=== PATIENT | female | born 1965 | race African-American/Black ===

== ENCOUNTER 2021-04-05 10:19 | Inpatient (IN) | payer OTHER ==
[2021-04-05 11:52] VITALS: BMI 32.9
[2021-04-05] MEDS ORDERED: MAGNESIUM HYDROX 2400MG/30ML ORAL SUSPENSION 30 ML CUP PO PRN (14:47)
[2021-04-05] MEDS ORDERED: MAGNESIUM CITRATE 300 ML BOTTLE PO PRN (14:47)
[2021-04-05] MEDS ORDERED: MAG HYDROX/AL HYDROX/SIMETH 30 ML UNIT-DOSE CUP PO PRN (14:47)
[2021-04-05] MEDS ORDERED: guaiFENesin 200 MG/10 ML 10 ML UNIT-DOSE CUPS PO PRN (14:47)
[2021-04-05] MEDS ORDERED: P-EPHED 60MG/TRIPROLIDI 2.5MG TABLET PO PRN (14:47)
[2021-04-05] MEDS ORDERED: LOPERAMIDE HCL 2 MG CAPSULE PO PRN (14:47)
[2021-04-05] MEDS ORDERED: LISINOPRIL 20 MG TABLET PO ONE (14:48)
[2021-04-05] MEDS ORDERED: hydrOXYzine PAMOATE 25 MG CAPSULE (FP) PO ONE (15:16)
[2021-04-05] MEDS ORDERED: LISINOPRIL 10 MG TABLET ONE (15:16)
[2021-04-05] MEDS: hydrOXYzine PAMOATE 25 MG CAPSULE (FP) PO SCH ×3 (15:18→21:26)
[2021-04-05] MEDS ORDERED: IBUPROFEN 400 MG TABLET (FP) PO ONE (15:21)
[2021-04-05] MEDS: IBUPROFEN 400 MG TABLET (FP) PO PRN (15:30)
[2021-04-05] MEDS: HYDROCHLOROTHIAZIDE 12.5 MG CAPSULE (FP) PO SCH (15:59)
[2021-04-05] MEDS: MELATONIN 5 MG TABLETS PO SCH (21:24)
[2021-04-05] MEDS: THIAMINE HCL 100 MG TABLET (FP) PO SCH (21:24)
[2021-04-05] MEDS: METOPROLOL TARTRATE 25 MG TABLET (FP) PO SCH (21:25)
[2021-04-05] MEDS: BENZTROPINE MESYLATE 1 MG TABLET PO SCH (21:25)
[2021-04-05] MEDS: LISINOPRIL 20 MG TABLET PO SCH (21:25)
[2021-04-05] MEDS: DOXEPIN HCL 10 MG CAPSULE PO SCH (21:26)
[2021-04-05] MEDS: risperiDONE 2 MG TABLET PO SCH (21:26)
[2021-04-06] MEDS: hydrOXYzine PAMOATE 25 MG CAPSULE (FP) PO SCH ×5 (06:42→21:25)
[2021-04-06] MEDS: ASPIRIN 81 MG CHEWABLE TABLETS PO SCH (09:49)
[2021-04-06] MEDS: PRENATAL VITAMINS W/ FOLIC ACID TABLET (FP) PO SCH (09:49)
[2021-04-06] MEDS: LISINOPRIL 20 MG TABLET PO SCH ×2 (09:50→21:25)
[2021-04-06] MEDS: METOPROLOL TARTRATE 25 MG TABLET (FP) PO SCH ×2 (09:50→21:25)
[2021-04-06] MEDS: HYDROCHLOROTHIAZIDE 12.5 MG CAPSULE (FP) PO SCH (09:50)
[2021-04-06] MEDS: amLODIPine BESYLATE 10 MG TABLET (FP) PO SCH (09:50)
[2021-04-06] MEDS: SERTRALINE HCL 50 MG TABLET (FP) PO SCH (09:50)
[2021-04-06 12:37] LABS: CALCIUM 9.7 mg/dL (8.5-10.1)
[2021-04-06 12:39] LABS: CREATININE 1.5 mg/dL (0.55-1.3); HEMATOCRIT 41.6 % (32.4-45.2); MCH 29.9 pg (25.7-33.7); MCHC 33.6 g/dl (32.0-36.0); MEAN CELL VOLUME 89.1 fl (80-96); MEAN PLT VOLUME 9.5 fl (7.5-11.1); PLATELET COUNT 277 10^3/uL (134-434); RBC 4.67 M/mm3 (3.60-5.2); RDW 14.5 % (11.6-15.6); WHITE BLOOD COUNT 7.3 K/mm3 (4.0-10.0)
[2021-04-06 12:41] LABS: BILIRUBIN,TOTAL 0.4 mg/dL (0.2-1)
[2021-04-06 12:43] LABS: TOT PROT 7.4 g/dl (6.4-8.2)
[2021-04-06] MEDS: risperiDONE 2 MG TABLET PO SCH (21:24)
[2021-04-06] MEDS: BENZTROPINE MESYLATE 1 MG TABLET PO SCH (21:25)
[2021-04-06] MEDS: THIAMINE HCL 100 MG TABLET (FP) PO SCH (21:25)
[2021-04-06] MEDS: MELATONIN 5 MG TABLETS PO SCH (21:25)
[2021-04-06] MEDS: DOXEPIN HCL 10 MG CAPSULE PO SCH (21:25)
[2021-04-07] MEDS: hydrOXYzine PAMOATE 25 MG CAPSULE (FP) PO SCH ×5 (06:42→21:29)
[2021-04-07] MEDS: SERTRALINE HCL 50 MG TABLET (FP) PO SCH (10:11)
[2021-04-07] MEDS: amLODIPine BESYLATE 10 MG TABLET (FP) PO SCH (10:11)
[2021-04-07] MEDS: ASPIRIN 81 MG CHEWABLE TABLETS PO SCH (10:11)
[2021-04-07] MEDS: METOPROLOL TARTRATE 25 MG TABLET (FP) PO SCH ×2 (10:11→21:28)
[2021-04-07] MEDS: LISINOPRIL 20 MG TABLET PO SCH ×2 (10:11→21:29)
[2021-04-07] MEDS: HYDROCHLOROTHIAZIDE 12.5 MG CAPSULE (FP) PO SCH (10:11)
[2021-04-07] MEDS: PRENATAL VITAMINS W/ FOLIC ACID TABLET (FP) PO SCH (10:11)
[2021-04-07] MEDS: ACETAMINOPHEN 325 MG TABLET (FP) PO PRN (15:46)
[2021-04-07] MEDS: BENZTROPINE MESYLATE 1 MG TABLET PO SCH (21:28)
[2021-04-07] MEDS: risperiDONE 2 MG TABLET PO SCH (21:28)
[2021-04-07] MEDS: MELATONIN 5 MG TABLETS PO SCH (21:29)
[2021-04-07] MEDS: DOXEPIN HCL 10 MG CAPSULE PO SCH (21:29)
[2021-04-07] MEDS: THIAMINE HCL 100 MG TABLET (FP) PO SCH (21:29)
[2021-04-08] MEDS: hydrOXYzine PAMOATE 25 MG CAPSULE (FP) PO SCH ×5 (06:31→21:15)
[2021-04-08] MEDS: ACETAMINOPHEN 325 MG TABLET (FP) PO PRN (09:47)
[2021-04-08] MEDS: PRENATAL VITAMINS W/ FOLIC ACID TABLET (FP) PO SCH (09:48)
[2021-04-08] MEDS: LISINOPRIL 20 MG TABLET PO SCH ×2 (09:48→21:16)
[2021-04-08] MEDS: HYDROCHLOROTHIAZIDE 12.5 MG CAPSULE (FP) PO SCH (09:48)
[2021-04-08] MEDS: amLODIPine BESYLATE 10 MG TABLET (FP) PO SCH (09:48)
[2021-04-08] MEDS: ASPIRIN 81 MG CHEWABLE TABLETS PO SCH (09:48)
[2021-04-08] MEDS: METOPROLOL TARTRATE 25 MG TABLET (FP) PO SCH ×2 (09:48→21:16)
[2021-04-08] MEDS: SERTRALINE HCL 50 MG TABLET (FP) PO SCH (09:48)
[2021-04-08] MEDS: risperiDONE 2 MG TABLET PO SCH (21:15)
[2021-04-08] MEDS: THIAMINE HCL 100 MG TABLET (FP) PO SCH (21:16)
[2021-04-08] MEDS: MELATONIN 5 MG TABLETS PO SCH (21:16)
[2021-04-08] MEDS: BENZTROPINE MESYLATE 1 MG TABLET PO SCH (21:16)
[2021-04-08] MEDS: DOXEPIN HCL 10 MG CAPSULE PO SCH (21:17)
[2021-04-09] MEDS: hydrOXYzine PAMOATE 25 MG CAPSULE (FP) PO SCH ×5 (06:56→21:25)
[2021-04-09] MEDS: HYDROCHLOROTHIAZIDE 12.5 MG CAPSULE (FP) PO SCH (09:55)
[2021-04-09] MEDS: METOPROLOL TARTRATE 25 MG TABLET (FP) PO SCH ×2 (09:55→21:24)
[2021-04-09] MEDS: ASPIRIN 81 MG CHEWABLE TABLETS PO SCH (09:55)
[2021-04-09] MEDS: amLODIPine BESYLATE 10 MG TABLET (FP) PO SCH (09:55)
[2021-04-09] MEDS: LISINOPRIL 20 MG TABLET PO SCH ×2 (09:55→21:24)
[2021-04-09] MEDS: PRENATAL VITAMINS W/ FOLIC ACID TABLET (FP) PO SCH (09:55)
[2021-04-09] MEDS: SERTRALINE HCL 50 MG TABLET (FP) PO SCH (09:55)
[2021-04-09] MEDS ORDERED: PT OWN MED DRAWER 7, Y5N ONE (18:49)
[2021-04-09] MEDS: BENZTROPINE MESYLATE 1 MG TABLET PO SCH (21:24)
[2021-04-09] MEDS: THIAMINE HCL 100 MG TABLET (FP) PO SCH (21:24)
[2021-04-09] MEDS: NICOTINE 10 MG CARTRIDGE (INHALER) IH PRN (21:24)
[2021-04-09] MEDS: DOXEPIN HCL 10 MG CAPSULE PO SCH (21:24)
[2021-04-09] MEDS: MELATONIN 5 MG TABLETS PO SCH (21:24)
[2021-04-09] MEDS: risperiDONE 2 MG TABLET PO SCH (21:24)
[2021-04-10] MEDS: hydrOXYzine PAMOATE 25 MG CAPSULE (FP) PO SCH ×5 (06:56→21:16)
[2021-04-10] MEDS ORDERED: PT OWN MED DRAWER 7, Y5N ONE (09:21)
[2021-04-10] MEDS: HYDROCHLOROTHIAZIDE 12.5 MG CAPSULE (FP) PO SCH (09:39)
[2021-04-10] MEDS: ASPIRIN 81 MG CHEWABLE TABLETS PO SCH (09:39)
[2021-04-10] MEDS: LISINOPRIL 20 MG TABLET PO SCH ×2 (09:39→21:16)
[2021-04-10] MEDS: PRENATAL VITAMINS W/ FOLIC ACID TABLET (FP) PO SCH (09:39)
[2021-04-10] MEDS: ACETAMINOPHEN 325 MG TABLET (FP) PO PRN (09:39)
[2021-04-10] MEDS: amLODIPine BESYLATE 10 MG TABLET (FP) PO SCH (09:39)
[2021-04-10] MEDS: SERTRALINE HCL 50 MG TABLET (FP) PO SCH (09:39)
[2021-04-10] MEDS: METOPROLOL TARTRATE 25 MG TABLET (FP) PO SCH ×2 (10:22→21:16)
[2021-04-10] MEDS: BENZTROPINE MESYLATE 1 MG TABLET PO SCH (21:16)
[2021-04-10] MEDS: risperiDONE 2 MG TABLET PO SCH (21:16)
[2021-04-10] MEDS: MELATONIN 5 MG TABLETS PO SCH (21:16)
[2021-04-10] MEDS: THIAMINE HCL 100 MG TABLET (FP) PO SCH (21:17)
[2021-04-10] MEDS: DOXEPIN HCL 10 MG CAPSULE PO SCH (21:17)
[2021-04-11] MEDS: hydrOXYzine PAMOATE 25 MG CAPSULE (FP) PO SCH ×5 (06:55→21:28)
[2021-04-11] MEDS: PRENATAL VITAMINS W/ FOLIC ACID TABLET (FP) PO SCH (10:36)
[2021-04-11] MEDS: amLODIPine BESYLATE 10 MG TABLET (FP) PO SCH (10:37)
[2021-04-11] MEDS: METOPROLOL TARTRATE 25 MG TABLET (FP) PO SCH ×2 (10:37→21:28)
[2021-04-11] MEDS: ASPIRIN 81 MG CHEWABLE TABLETS PO SCH (10:37)
[2021-04-11] MEDS: LISINOPRIL 20 MG TABLET PO SCH ×2 (10:37→21:28)
[2021-04-11] MEDS: SERTRALINE HCL 50 MG TABLET (FP) PO SCH (10:37)
[2021-04-11] MEDS: HYDROCHLOROTHIAZIDE 12.5 MG CAPSULE (FP) PO SCH (10:37)
[2021-04-11] MEDS: IBUPROFEN 400 MG TABLET (FP) PO PRN (10:38)
[2021-04-11] MEDS: BENZTROPINE MESYLATE 1 MG TABLET PO SCH (21:28)
[2021-04-11] MEDS: MELATONIN 5 MG TABLETS PO SCH (21:28)
[2021-04-11] MEDS: THIAMINE HCL 100 MG TABLET (FP) PO SCH (21:28)
[2021-04-11] MEDS: risperiDONE 2 MG TABLET PO SCH (21:28)
[2021-04-11] MEDS: DOXEPIN HCL 10 MG CAPSULE PO SCH (21:29)
[2021-04-12] MEDS: hydrOXYzine PAMOATE 25 MG CAPSULE (FP) PO SCH (06:56)
[2021-04-12] MEDS: amLODIPine BESYLATE 10 MG TABLET (FP) PO SCH (10:13)
[2021-04-12] MEDS: hydrOXYzine PAMOATE 25 MG CAPSULE (FP) PO PRN (10:13)
[2021-04-12] MEDS: PRENATAL VITAMINS W/ FOLIC ACID TABLET (FP) PO SCH (10:13)
[2021-04-12] MEDS: LISINOPRIL 20 MG TABLET PO SCH ×2 (10:13→21:33)
[2021-04-12] MEDS: METOPROLOL TARTRATE 25 MG TABLET (FP) PO SCH ×2 (10:13→21:33)
[2021-04-12] MEDS: HYDROCHLOROTHIAZIDE 12.5 MG CAPSULE (FP) PO SCH (10:13)
[2021-04-12] MEDS: ASPIRIN 81 MG CHEWABLE TABLETS PO SCH (10:13)
[2021-04-12] MEDS: SERTRALINE HCL 50 MG TABLET (FP) PO SCH (10:13)
[2021-04-12] MEDS: NICOTINE 10 MG CARTRIDGE (INHALER) IH PRN (10:42)
[2021-04-12] MEDS: DOXEPIN HCL 10 MG CAPSULE PO SCH (21:32)
[2021-04-12] MEDS ORDERED: PT OWN MED DRAWER 7, Y5N ONE (21:32)
[2021-04-12] MEDS: MELATONIN 5 MG TABLETS PO SCH (21:33)
[2021-04-12] MEDS: THIAMINE HCL 100 MG TABLET (FP) PO SCH (21:33)
[2021-04-12] MEDS: BENZTROPINE MESYLATE 1 MG TABLET PO SCH (21:33)
[2021-04-12] MEDS: risperiDONE 2 MG TABLET PO SCH (21:33)
[2021-04-13] MEDS: amLODIPine BESYLATE 10 MG TABLET (FP) PO SCH (10:06)
[2021-04-13] MEDS: HYDROCHLOROTHIAZIDE 12.5 MG CAPSULE (FP) PO SCH (10:06)
[2021-04-13] MEDS: SERTRALINE HCL 50 MG TABLET (FP) PO SCH (10:06)
[2021-04-13] MEDS: ASPIRIN 81 MG CHEWABLE TABLETS PO SCH (10:06)
[2021-04-13] MEDS: LISINOPRIL 20 MG TABLET PO SCH ×2 (10:06→21:35)
[2021-04-13] MEDS: hydrOXYzine PAMOATE 25 MG CAPSULE (FP) PO PRN ×2 (10:06→21:35)
[2021-04-13] MEDS: PRENATAL VITAMINS W/ FOLIC ACID TABLET (FP) PO SCH (10:06)
[2021-04-13] MEDS: METOPROLOL TARTRATE 25 MG TABLET (FP) PO SCH ×2 (10:06→21:35)
[2021-04-13] MEDS: NICOTINE 10 MG CARTRIDGE (INHALER) IH PRN (10:26)
[2021-04-13] MEDS ORDERED: PT OWN MED DRAWER 7, Y5N ONE (18:45)
[2021-04-13] MEDS: risperiDONE 2 MG TABLET PO SCH (21:34)
[2021-04-13] MEDS: BENZTROPINE MESYLATE 1 MG TABLET PO SCH (21:35)
[2021-04-13] MEDS: THIAMINE HCL 100 MG TABLET (FP) PO SCH (21:36)
[2021-04-13] MEDS: MELATONIN 5 MG TABLETS PO SCH (21:36)
[2021-04-13] MEDS: DOXEPIN HCL 10 MG CAPSULE PO SCH (21:37)
[2021-04-14] MEDS: ASPIRIN 81 MG CHEWABLE TABLETS PO SCH (09:56)
[2021-04-14] MEDS: HYDROCHLOROTHIAZIDE 12.5 MG CAPSULE (FP) PO SCH (09:56)
[2021-04-14] MEDS: METOPROLOL TARTRATE 25 MG TABLET (FP) PO SCH ×2 (09:56→21:14)
[2021-04-14] MEDS: SERTRALINE HCL 50 MG TABLET (FP) PO SCH (09:57)
[2021-04-14] MEDS: LISINOPRIL 20 MG TABLET PO SCH ×2 (09:57→21:14)
[2021-04-14] MEDS: hydrOXYzine PAMOATE 25 MG CAPSULE (FP) PO PRN ×2 (09:58→21:14)
[2021-04-14] MEDS: amLODIPine BESYLATE 10 MG TABLET (FP) PO SCH (09:58)
[2021-04-14] MEDS: PRENATAL VITAMINS W/ FOLIC ACID TABLET (FP) PO SCH (10:38)
[2021-04-14] MEDS: risperiDONE 2 MG TABLET PO SCH (21:14)
[2021-04-14] MEDS: THIAMINE HCL 100 MG TABLET (FP) PO SCH (21:14)
[2021-04-14] MEDS: BENZTROPINE MESYLATE 1 MG TABLET PO SCH (21:14)
[2021-04-14] MEDS: MELATONIN 5 MG TABLETS PO SCH (21:14)
[2021-04-14] MEDS: DOXEPIN HCL 10 MG CAPSULE PO SCH (21:14)
[2021-04-15] MEDS: IBUPROFEN 400 MG TABLET (FP) PO PRN (08:08)
[2021-04-15] MEDS: METOPROLOL TARTRATE 25 MG TABLET (FP) PO SCH ×2 (09:08→21:21)
[2021-04-15] MEDS: PRENATAL VITAMINS W/ FOLIC ACID TABLET (FP) PO SCH (09:08)
[2021-04-15] MEDS: ASPIRIN 81 MG CHEWABLE TABLETS PO SCH (09:08)
[2021-04-15] MEDS: HYDROCHLOROTHIAZIDE 12.5 MG CAPSULE (FP) PO SCH (09:08)
[2021-04-15] MEDS: LISINOPRIL 20 MG TABLET PO SCH ×2 (09:08→21:21)
[2021-04-15] MEDS: amLODIPine BESYLATE 10 MG TABLET (FP) PO SCH (09:08)
[2021-04-15] MEDS: SERTRALINE HCL 50 MG TABLET (FP) PO SCH (09:08)
[2021-04-15] MEDS: NICOTINE 10 MG CARTRIDGE (INHALER) IH PRN (16:52)
[2021-04-15] MEDS: THIAMINE HCL 100 MG TABLET (FP) PO SCH (21:20)
[2021-04-15] MEDS: DOXEPIN HCL 10 MG CAPSULE PO SCH (21:20)
[2021-04-15] MEDS: BENZTROPINE MESYLATE 1 MG TABLET PO SCH (21:20)
[2021-04-15] MEDS: MELATONIN 5 MG TABLETS PO SCH (21:20)
[2021-04-15] MEDS: risperiDONE 2 MG TABLET PO SCH (21:21)
[2021-04-15] MEDS: hydrOXYzine PAMOATE 25 MG CAPSULE (FP) PO PRN (21:21)
[2021-04-16] MEDS: IBUPROFEN 400 MG TABLET (FP) PO PRN ×2 (10:00→21:15)
[2021-04-16] MEDS: PRENATAL VITAMINS W/ FOLIC ACID TABLET (FP) PO SCH (10:01)
[2021-04-16] MEDS: amLODIPine BESYLATE 10 MG TABLET (FP) PO SCH (10:01)
[2021-04-16] MEDS: ASPIRIN 81 MG CHEWABLE TABLETS PO SCH (10:01)
[2021-04-16] MEDS: LISINOPRIL 20 MG TABLET PO SCH ×2 (10:01→21:14)
[2021-04-16] MEDS: SERTRALINE HCL 50 MG TABLET (FP) PO SCH (10:01)
[2021-04-16] MEDS: METOPROLOL TARTRATE 25 MG TABLET (FP) PO SCH ×2 (10:01→21:14)
[2021-04-16] MEDS: hydrOXYzine PAMOATE 25 MG CAPSULE (FP) PO PRN ×2 (10:01→21:25)
[2021-04-16] MEDS: HYDROCHLOROTHIAZIDE 12.5 MG CAPSULE (FP) PO SCH (10:01)
[2021-04-16] MEDS ORDERED: PT OWN MED DRAWER 7, Y5N ONE (18:34)
[2021-04-16] MEDS: BENZTROPINE MESYLATE 1 MG TABLET PO SCH (21:14)
[2021-04-16] MEDS: risperiDONE 2 MG TABLET PO SCH (21:14)
[2021-04-16] MEDS: MELATONIN 5 MG TABLETS PO SCH (21:14)
[2021-04-16] MEDS: THIAMINE HCL 100 MG TABLET (FP) PO SCH (21:15)
[2021-04-16] MEDS: DOXEPIN HCL 10 MG CAPSULE PO SCH (22:54)
[2021-04-17] MEDS: HYDROCHLOROTHIAZIDE 12.5 MG CAPSULE (FP) PO SCH (10:29)
[2021-04-17] MEDS: hydrOXYzine PAMOATE 25 MG CAPSULE (FP) PO PRN ×2 (10:29→21:14)
[2021-04-17] MEDS: LISINOPRIL 20 MG TABLET PO SCH ×2 (10:29→21:13)
[2021-04-17] MEDS: IBUPROFEN 400 MG TABLET (FP) PO PRN (10:29)
[2021-04-17] MEDS: amLODIPine BESYLATE 10 MG TABLET (FP) PO SCH (10:29)
[2021-04-17] MEDS: PRENATAL VITAMINS W/ FOLIC ACID TABLET (FP) PO SCH (10:29)
[2021-04-17] MEDS: METOPROLOL TARTRATE 25 MG TABLET (FP) PO SCH ×2 (10:29→21:13)
[2021-04-17] MEDS: SERTRALINE HCL 50 MG TABLET (FP) PO SCH (10:29)
[2021-04-17] MEDS: ASPIRIN 81 MG CHEWABLE TABLETS PO SCH (10:29)
[2021-04-17] MEDS: NICOTINE 10 MG CARTRIDGE (INHALER) IH PRN (12:20)
[2021-04-17] MEDS ORDERED: PT OWN MED DRAWER 7, Y5N ONE (18:44)
[2021-04-17] MEDS: BENZTROPINE MESYLATE 1 MG TABLET PO SCH (21:13)
[2021-04-17] MEDS: DOXEPIN HCL 10 MG CAPSULE PO SCH (21:13)
[2021-04-17] MEDS: MELATONIN 5 MG TABLETS PO SCH (21:13)
[2021-04-17] MEDS: risperiDONE 2 MG TABLET PO SCH (21:13)
[2021-04-17] MEDS: THIAMINE HCL 100 MG TABLET (FP) PO SCH (21:13)
[2021-04-18] MEDS: HYDROCHLOROTHIAZIDE 12.5 MG CAPSULE (FP) PO SCH (10:11)
[2021-04-18] MEDS: PRENATAL VITAMINS W/ FOLIC ACID TABLET (FP) PO SCH (10:11)
[2021-04-18] MEDS: ASPIRIN 81 MG CHEWABLE TABLETS PO SCH (10:11)
[2021-04-18] MEDS: METOPROLOL TARTRATE 25 MG TABLET (FP) PO SCH ×2 (10:11→21:35)
[2021-04-18] MEDS: SERTRALINE HCL 50 MG TABLET (FP) PO SCH (10:12)
[2021-04-18] MEDS: hydrOXYzine PAMOATE 25 MG CAPSULE (FP) PO PRN ×2 (10:12→21:36)
[2021-04-18] MEDS: LISINOPRIL 20 MG TABLET PO SCH ×2 (10:12→21:35)
[2021-04-18] MEDS: amLODIPine BESYLATE 10 MG TABLET (FP) PO SCH (10:12)
[2021-04-18] MEDS: NICOTINE 10 MG CARTRIDGE (INHALER) IH PRN (10:37)
[2021-04-18] MEDS ORDERED: PT OWN MED DRAWER 7, Y5N ONE (19:37)
[2021-04-18] MEDS: risperiDONE 2 MG TABLET PO SCH (21:34)
[2021-04-18] MEDS: BENZTROPINE MESYLATE 1 MG TABLET PO SCH (21:35)
[2021-04-18] MEDS: IBUPROFEN 400 MG TABLET (FP) PO PRN (21:36)
[2021-04-18] MEDS: THIAMINE HCL 100 MG TABLET (FP) PO SCH (21:36)
[2021-04-18] MEDS: MELATONIN 5 MG TABLETS PO SCH (21:36)
[2021-04-18] MEDS: DOXEPIN HCL 10 MG CAPSULE PO SCH (21:36)
[2021-04-19 07:10] VITALS: BP 157/98; PULSE 66; TEMP 97.7
[2021-04-19] MEDS: NICOTINE 10 MG CARTRIDGE (INHALER) IH PRN (07:23)
[2021-04-19] MEDS: SERTRALINE HCL 50 MG TABLET (FP) PO SCH (09:21)
[2021-04-19] MEDS: ASPIRIN 81 MG CHEWABLE TABLETS PO SCH (09:22)
[2021-04-19] MEDS: hydrOXYzine PAMOATE 25 MG CAPSULE (FP) PO PRN (09:22)
[2021-04-19] MEDS: amLODIPine BESYLATE 10 MG TABLET (FP) PO SCH (09:22)
[2021-04-19] MEDS: METOPROLOL TARTRATE 25 MG TABLET (FP) PO SCH (09:22)
[2021-04-19] MEDS: HYDROCHLOROTHIAZIDE 12.5 MG CAPSULE (FP) PO SCH (09:22)
[2021-04-19] MEDS: LISINOPRIL 20 MG TABLET PO SCH (09:22)
[2021-04-19] MEDS: PRENATAL VITAMINS W/ FOLIC ACID TABLET (FP) PO SCH (09:22)
== END 2021-04-19 10:00 | disposition home or self-care (01) | DRG 772 ==
LOC: YASAS 10:19 → Y3W 15:12
PROVIDERS: ADMIT Allergy & Immunology; ATTEND Allergy & Immunology
PROC: HZ42ZZZ Group Counseling for Substance Abuse Treatment, Cognitive-Behavioral (ICD-10-PCS; principal; 2021-04-05)
DX: F10.20 Alcohol dependence, uncomplicated (principal); F14.20 Cocaine dependence, uncomplicated; F17.210 Nicotine dependence, cigarettes, uncomplicated; F25.9 Schizoaffective disorder, unspecified; F31.9 Bipolar disorder, unspecified; F41.1 Generalized anxiety disorder; I10 Essential (primary) hypertension; J45.909 Unspecified asthma, uncomplicated; M25.561 Pain in right knee
CPT/HCPCS: 36415; 80053; 85027; 86780; C9803; U0003; U0005